=== PATIENT | female | born 1965 | race American Indian/Alaskan Native ===

== ENCOUNTER 2017-04-25 07:17 | Emergency (ER) | payer MEDICARE ==
[2017-04-25 07:34] VITALS: BP 166/88
--- NOTE | 2017-04-25 08:41 | Emergency Department Report ---
ED Recheck HPI - General Chief Complaint: Recheck/Abnormal Lab/Rx Stated Complaint: BILAT HIP PAIN Time Seen by Provider: 04/25/17 08:08 Source: patient Mode of arrival: Ambulatory Limitations: No Limitations - History of Present Illness Initial Comments: This is a 51-year-old female nontoxic, well nourished in appearance, no acute signs of distress presents to the ED complaining of morphine [address] refill[address] Patient stated Dr. Stone for a prescription with the wrong date and pharmacy will not fill it. Patient states she has a history of chronic pain from her surgery of her hip and knees. Denies any new trauma, chest pain, fever, chills , headache, nausea or vomiting. Patient states that allergies amoxicillin and oxycodone. Past medical history includes arthritis, CVA, and hypertension. MD Complaint: medication refill request -: Gradual Symptoms Since Prior Visit: no new symptoms Associated Symptoms: none. denies: fever, chills, chest pain, shortness of breath, rash, malaise, nasuea, abdominal pain - Related Data Home Medications Medication Instructions Recorded Confirmed Last Taken Diclofenac Dr [Ton Lewis] 75 mg PO BID 04/25/17 04/25/17 04/24/17 21:00 Losartan/Hydrochlorothiazide 1 each PO QDAY 04/25/17 04/25/17 04/24/17 09:00 [Losartan-Hctz 100-25 mg Tab] Morphine Sulfate [Morphine Sulfate 60 mg PO BID 04/25/17 04/25/17 04/23/17 09:00 ER] Previous Rx's Medication Instructions Recorded Last Taken Type Morphine ER [Ms Contin ER] 60 mg PO BID #2 tablet 04/25/17 Unknown Rx Allergies Allergy/AdvReac Type Severity Reaction Status Date / Time amoxicillin Allergy Swelling Verified 04/25/17 07:24 oxycodone HCl AdvReac Itching Verified 04/25/17 07:24 [From OxyContin] ED Review of Systems ROS: Stated complaint: BILAT HIP PAIN Other details as noted in HPI Constitutional: denies: chills, fever Eyes: denies: eye pain, eye discharge, vision change ENT: denies: ear pain, throat pain Respiratory: denies: cough, shortness of breath, wheezing Cardiovascular: denies: chest pain, palpitations Endocrine: no symptoms reported Gastrointestinal: denies: abdominal pain, nausea, diarrhea Genitourinary: denies: urgency, dysuria, discharge Musculoskeletal: denies: back pain, joint swelling, arthralgia Skin: denies: rash, lesions Neurological: denies: headache, weakness, paresthesias Psychiatric: denies: anxiety, depression Hematological/Lymphatic: denies: easy bleeding, easy bruising ED Past Medical Hx - Past Medical History Hx Hypertension: Yes Hx CVA: Yes (x 2) Hx Arthritis: Yes (???) Additional medical history: chronic pain - Surgical History Additional Surgical History: ortho pelvic surgery. . tubal ligation. right rotator cuff repair - Social History Smoking Status: Current Every Day Smoker Substance Use Type: Prescribed - Medications Home Medications: Home Medications Medication Instructions Recorded Confirmed Last Taken Type Diclofenac Dr [Ton Lewis] 75 mg PO BID 04/25/17 04/25/17 04/24/17 21:00 History Losartan/Hydrochlorothiazide 1 each PO QDAY 04/25/17 04/25/17 04/24/17 09:00 History [Losartan-Hctz 100-25 mg Tab] Morphine ER [Ms Contin ER] 60 mg PO BID #2 tablet 04/25/17 Unknown Rx Morphine Sulfate [Morphine Sulfate 60 mg PO BID 04/25/17 04/25/17 04/23/17 09: 00 History ER] ED Physical Exam - General Limitations: No Limitations General appearance: alert, in no apparent distress - Head Head exam: Present: atraumatic, normocephalic - Eye Eye exam: Present: normal appearance, PERRL, EOMI. Absent: scleral icterus, conjunctival injection, nystagmus, periorbital swelling, periorbital tenderness Pupils: Present: normal accommodation - ENT ENT exam: Present: normal exam, normal orophraynx, mucous membranes moist, TM's normal bilaterally, normal external ear exam - Neck Neck exam: Present: normal inspection, full ROM. Absent: tenderness, meningismus, lymphadenopathy, thyromegaly - Respiratory Respiratory exam: Present: normal lung sounds bilaterally. Absent: respiratory distress, wheezes, rales, rhonchi, stridor, chest wall tenderness, accessory muscle use, decreased breath sounds, prolonged expiratory - Cardiovascular Cardiovascular Exam: Present: regular rate, normal rhythm, normal heart sounds. Absent: bradycardia, tachycardia, irregular rhythm, systolic murmur, diastolic murmur, rubs, gallop - GI/Abdominal GI/Abdominal exam: Present: soft, normal bowel sounds. Absent: distended, tenderness, guarding, rebound, rigid, diminished bowel sounds - Rectal Rectal exam: Present: deferred - Extremities Exam Extremities exam: Present: normal inspection, full ROM, normal capillary refill. Absent: tenderness, pedal edema, joint swelling, calf tenderness - Back Exam Back exam: Present: normal inspection, full ROM. Absent: tenderness, CVA tenderness (R), CVA tenderness (L), muscle spasm, paraspinal tenderness, vertebral tenderness, rash noted - Neurological Exam Neurological exam: Present: alert, oriented X3, CN II-XII intact, normal gait, reflexes normal - Psychiatric Psychiatric exam: Present: normal affect, normal mood - Skin Skin exam: Present: warm, dry, intact, normal color. Absent: rash ED Course Vital Signs 04/25/17 07:32 Temperature 98.5 F Pulse Rate 81 Respiratory 17 Rate Blood Pressure 166/88 O2 Sat by Pulse 100 Oximetry - Reevaluation(s) Reevaluation #1: 04/25/17 08:42 Patient is speaking in full sentences with no signs of distress. - Consultations Consultation #1: 04/25/17 08:42 Erick Cabrera was consulted at regarding patients history and medication refill request. Dr. Stone stated it was a mistake in his part and requested for me to fill a day worth of Morphine 60 mg BID. ED Recheck MDM - Medical Decision Making 51-year-old presents with medication refill. Patient showed me the prescription that Dr. Stone wrote for her with the wrong date. Erick Cabrera was consulted at regarding patients history and medication refill request. Dr. Stone stated it was a mistake in his part and requested for me to fill a day worth of Morphine 60 mg BID. Patient was instructed not to operate any machinery while taking morphine due to sedation/drowsiness. At time time of discharge, the patient does not seem toxic or ill in appearance. No acute signs of distress noted. Patient agrees to discharge treatment plan of care. No further questions noted by the patient. Critical care attestation.: If time is entered above; I have spent that time in minutes in the direct care of this critically ill patient, excluding procedure time. ED Disposition Clinical Impression: Medication refill Disposition: DC-01 TO HOME OR SELFCARE Is pt being admited?: No Does the pt Need Aspirin: No Condition: Stable Instructions: Morphine, Slow Release (By mouth) Additional Instructions: Follow-up with Dr. Sosa in 24 hours or if symptoms worsen or continue without the emergency room as soon as possible. Due to the operate any machinery taking morphine due to sedation/drowsiness. Prescriptions: Morphine ER [Ms Contin ER] 60 mg PO BID #2 tablet Referrals: PRIMARY CAREMD [Primary Care Provider] - 3-5 Days [facility] [Outside] - 3-5 Days ERICK STONE SR, MD [Referring] - 24 Hours Forms: Work/School Release Form(ED)
== END 2017-04-25 08:56 | disposition home or self-care (01) ==
LOC: ED 07:17
DX: Z76.0 Encounter for issue of repeat prescription (principal); I10 Essential (primary) hypertension; G89.29 Other chronic pain; F17.200 Nicotine dependence, unspecified, uncomplicated; Z88.1 Allergy status to other antibiotic agents; Z88.8 Allergy status to other drugs, medicaments and biological substances; Z86.73 Personal history of transient ischemic attack (TIA), and cerebral infarction without residual deficits
CPT/HCPCS: 99282

== ENCOUNTER 2017-07-04 19:07 | Emergency (ER) | payer MEDICARE ==
[2017-07-04 19:20] VITALS: BP 173/100
[2017-07-04 19:36] LABS: Hematocrit 38.6 % (30.3-42.9); Hemoglobin 12.9 gm/dl (10.1-14.3); Mean Corpuscular HGB Conc 33 % (30-34); Mean Corpuscular Hemoglobin 32 pg (28-32); Mean Corpuscular Volume 95 fl (79-97); Platelet Count 247 K/mm3 (140-440); Red Blood Count 4.08 M/mm3 (3.65-5.03); Red Cell Distribution Width 13.7 % (13.2-15.2); White Blood Count 6.6 K/mm3 (4.5-11.0)
[2017-07-04 19:46] LABS: INR 0.89 (0.87-1.13); Partial Thromboplastin Time 27.8 Sec. (24.2-36.6)
[2017-07-04 19:58] LABS: Anion Gap 17 mmol/L; BUN/Creatinine Ratio 18; Blood Urea Nitrogen 14 mg/dL (7-17); Carbon Dioxide 26 mmol/L (22-30); Chloride 99.6 mmol/L (98-107); Glucose 105 mg/dL (65-100); Potassium 3.6 mmol/L (3.6-5.0); Sodium 139 mmol/L (137-145)
[2017-07-04 20:14] LABS: Basophils % (Manual) 0 % (0.0-1.8); Blastocytes % (Manual) 0 %
[2017-07-04 20:15] LABS: Diff Status Complete; Giant Platelets Few; Ovalocytes Few
--- NOTE | 2017-07-04 20:23 | Cat Scan Report ---
FINAL REPORT EXAM: CT HEAD/BRAIN WO CON HISTORY: neuro deficits \T\lt; 6hrs or sx present upon awakening TECHNIQUE: CT head without contrast PRIORS: None. FINDINGS: No acute intra-axial or extra-axial hemorrhage is identified. There is no evidence of midline shift or mass effect. The ventricles and sulci are within normal limits. Fregoso-white matter differentiation is intact. No acute parenchymal abnormalities seen. Bony calvarium is grossly intact. Visualized portions of the mastoids and paranasal sinuses are unremarkable. IMPRESSION: Negative CT head
== END 2017-07-04 23:55 | disposition left against medical advice (07) ==
LOC: ED 19:07
DX: R29.810 Facial weakness (principal); Z53.21 Procedure and treatment not carried out due to patient leaving prior to being seen by health care provider
CPT/HCPCS: 36415; 70450; 80048; 84484; 85007; 85025; 85610; 85670; 85730; 93005; 93010

== ENCOUNTER 2017-07-05 06:30 | Emergency (ER) | payer MEDICARE ==
[2017-07-05 07:05] LABS: Hematocrit 38.4 % (30.3-42.9); Hemoglobin 13.2 gm/dl (10.1-14.3); Mean Corpuscular HGB Conc 34 % (30-34); Mean Corpuscular Hemoglobin 33 pg (28-32); Mean Corpuscular Volume 95 fl (79-97); Platelet Count 244 K/mm3 (140-440); Red Blood Count 4.03 M/mm3 (3.65-5.03); Red Cell Distribution Width 13.7 % (13.2-15.2); White Blood Count 5.3 K/mm3 (4.5-11.0)
[2017-07-05 07:16] LABS: INR 0.87 (0.87-1.13)
[2017-07-05 07:17] LABS: Partial Thromboplastin Time 28.6 Sec. (24.2-36.6)
--- NOTE | 2017-07-05 07:17 | Emergency Department Report ---
HPI - General Chief Complaint: Neuro Symptoms/Deficit Time Seen by Provider: 07/05/17 07:04 - HPI HPI: This is a 51-year-old female who presents to the emergency department from home with a complaint of "my face is twisted." She also says that it feels like it is hard to completely close her eyes. Patient says that she first noticed it yesterday morning and did come to the hospital at that time but she says that she left because it was too busy at that time. She presents today with the same complaint. She denies any slurred speech, problems with movement of her extremities or ambulation or any other obvious neurological deficits. She has a history of hypertension. She also has a history of CVA 2 that did not leave her with any residual deficits. She has not taken anything for her symptoms prior to presentation. No recent travel or sick contacts at home. There is nothing that makes the facial asymmetry worse or better. Her PCP is a Dr. Erick Smallwood. She is a tobacco smoker and occasionally will smoke marijuana. ED Past Medical Hx - Past Medical History Previous Medical History?: Yes Hx Hypertension: Yes Hx CVA: Yes (x 2) Hx Arthritis: Yes (???) Additional medical history: chronic pain - Surgical History Past Surgical History?: Yes Additional Surgical History: ortho pelvic surgery. . tubal ligation. right rotator cuff repair - Social History Smoking Status: Current Every Day Smoker Substance Use Type: Marijuana - Medications Home Medications: Home Medications Medication Instructions Recorded Confirmed Last Taken Type Diclofenac [Ton Lewis] 75 mg PO BID 04/25/17 04/25/17 04/24/17 21:00 History Losartan/Hydrochlorothiazide 1 each PO QDAY 04/25/17 04/25/17 04/24/17 09:00 History [Losartan-Hctz 100-25 mg Tab] Morphine ER [Ms Contin ER] 60 mg PO BID #2 tablet 04/25/17 Unknown Rx Morphine Sulfate [Morphine Sulfate 60 mg PO BID 04/25/17 04/25/17 04/23/17 09: 00 History ER] Valacyclovir HCl [Valtrex] 1,000 mg PO TID #21 tablet 07/05/17 Unknown Rx predniSONE [Deltasone] 60 mg PO QDAY #21 tab 07/05/17 Unknown Rx ED Review of Systems ROS: Stated complaint: POSSIBLE MINI STROKE Other details as noted in HPI Comment: All other systems reviewed and negative Constitutional: denies: chills, fever Eyes: denies: eye pain, eye discharge, vision change ENT: denies: ear pain, throat pain Respiratory: denies: cough, shortness of breath, wheezing Cardiovascular: denies: chest pain, palpitations Gastrointestinal: denies: abdominal pain, nausea, diarrhea Genitourinary: denies: urgency, dysuria, discharge Musculoskeletal: denies: back pain, joint swelling, arthralgia Skin: denies: rash, lesions Neurological: other (facial asymmetry). denies: headache Physical Exam - Physical Exam Vital Signs: Vital Signs 07/05/17 07/05/17 06:38 06:40 Temperature 97.9 F 97.9 F Pulse Rate 61 66 Respiratory 18 18 Rate Blood Pressure 183/92 183/90 O2 Sat by Pulse 100 100 Oximetry Physical Exam: GENERAL: The patient is well-developed well-nourished. HENT: Normocephalic. Atraumatic. Patient has moist mucous membranes. She is able to raise her eyebrows but there is decreased movement with the left side when compared to the right. 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 EYES: Extraocular motions are intact. Pupils equal reactive to light bilaterally. No nystagmus. The patient has difficulty closing the left eyelid completely. NECK: Supple. Trachea is midline. CHEST/LUNGS: Clear to auscultation. There is no respiratory distress noted. HEART/CARDIOVASCULAR: Regular. There is no tachycardia. There is no gallop rub or murmur. ABDOMEN: Abdomen is soft, nontender. Patient has normal bowel sounds. There is no abdominal distention. SKIN: Skin is warm and dry. NEURO: The patient is awake, alert, and oriented. The patient is cooperative. The patient has no focal neurologic deficits. The patient has normal speech. Normal gait. No pronator drift. No dysmetria. There is subjective decreased sensation to the left arm when compared to the right. MUSCULOSKELETAL: There is no tenderness or deformity. There is no limitation range of motion. There is no evidence of acute injury. Muscle strength 5 out of 5 in upper and lower extremities bilaterally. 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 If positive for any type of acute infarction, the patient will be admitted to the hospital. If negative, she recommends discharge to home with a 7 day course of prednisone at 60 mg per day and Valtrex versus acyclovir. ED Medical Decision Making - Lab Data Result diagrams: 07/05/17 06:54 07/05/17 06:54 - EKG Data -: EKG Interpreted by Me EKG shows normal: sinus rhythm, axis, intervals, QRS complexes, ST-T waves Rate: normal - EKG Data When compared to previous EKG there are: previous EKG unavailable Interpretation: normal EKG - Radiology Data Radiology results: report reviewed CT scan of head without IV contrast: History: Facial droop. No slurred speech. Findings: Ventricles are normal in size and midline in location. 2 small focal areas of low attenuation in the left basal ganglia. measuring 4 mm in diameter is probably chronic lacunar infarct. Less likely acute/subacute ischemia cannot be entirely excluded. No extra-axial fluid collection. No evidence of hemorrhage. Normal brainstem and cerebellum. Normal sinuses and mastoid air cells. Impression: Areas of low attenuation left basal ganglia probably chronic lacunar infarct. Clinical correlation advised. If necessary MRI scan would be recommended. MRI of the brain resulted as a normal examination without any signs of ischemia or any other acute process. - Medical Decision Making This is a 51-year-old female presents to the emergency department after she noticed some left-sided facial paralysis and difficulty completely closing her left eye. Even if this was a CVA or TIA, the symptoms that started about 24 hours prior and therefore the patient would not have been a TPA candidate. A CT of the head was done that did not show any bleed, shift, mass, ischemia or any other acute process. On physical examination the patient does have left- sided nasolabial fold paresis and she has some difficulty completely closing her left eye with some decreased movement of the left side of the forehead. Doing an NIH stroke scale the patient she would be a 2 with the left-sided facial asymmetry and some subjective decreased sensation to the left arm when compared to the right. However the patient has no motor deficits. This presentation with her face appears more consistent with a Holt's palsy. However , to be on the safe side, I contacted the telemedicine neurologist who evaluated the patient via telephone monitor. The neurologist agreed with my assessment but did recommend that the patient have an MRI. If the MRI was to be negative that it appeared safe for the patient be discharged home with a 7 day course of steroids and Valtrex. The MRI was in fact negative for any signs of any acute process including ischemic changes. I spoke to the patient in great detail about Holt's palsy and she was sent home with prednisone and Valtrex given referrals for neurology. She understands the extreme importance to return to the emergency department if there is any other neurological deficits that show up or any other acute distress. Discharge instructions were given while in the emergency department and she understands, agrees to the plan , and all questions have been answered. - Differential Diagnosis Holt's palsy, CVA, TIA Critical Care Time: No Critical care attestation.: If time is entered above; I have spent that time in minutes in the direct care of this critically ill patient, excluding procedure time. ED Disposition Clinical Impression: Holt's palsy Disposition: DC-01 TO HOME OR SELFCARE Is pt being admited?: No Condition: Stable Instructions: Holt Palsy (ED) Additional Instructions: Please follow-up with your primary care physician in the next few days. I've also given you a referral for a local neurologist, Dr. tafoya, to follow up regarding your bells palsy. Return to the emergency Department with any worsening of her symptoms, slurred speech, weakness or any acute distress. Prescriptions: predniSONE [Deltasone] 60 mg PO QDAY #21 tab Valacyclovir HCl [Valtrex] 1,000 mg PO TID #21 tablet Referrals: PRIMARY CAREMD [Primary Care Provider] - 3-5 Days LEON TAFOYA MD [Staff Physician] - 3-5 Days Time of Disposition: 12:18
[2017-07-05] MEDS ORDERED: APRESOLINE IV ONE (07:19)
[2017-07-05 07:25] LABS: Anion Gap 18 mmol/L; BUN/Creatinine Ratio 18; Blood Urea Nitrogen 14 mg/dL (7-17); Calcium 9.9 mg/dL (8.4-10.2); Carbon Dioxide 27 mmol/L (22-30); Chloride 99.9 mmol/L (98-107); Glucose 108 mg/dL (65-100); Potassium 3.6 mmol/L (3.6-5.0); Sodium 141 mmol/L (137-145)
--- NOTE | 2017-07-05 08:18 | Cat Scan Report ---
CT scan of head without IV contrast: History: Facial droop. No slurred speech. Findings: Ventricles are normal in size and midline in location. 2 small focal areas of low attenuation in the left basal ganglia. measuring 4 mm in diameter is probably chronic lacunar infarct. Less likely acute/subacute ischemia cannot be entirely excluded. No extra-axial fluid collection. No evidence of hemorrhage. Normal brainstem and cerebellum. Normal sinuses and mastoid air cells. Impression: Areas of low attenuation left basal ganglia probably chronic lacunar infarct. Clinical correlation advised. If necessary MRI scan would be recommended.
[2017-07-05 08:38] LABS: Basophils % (Manual) 0 % (0.0-1.8); Blastocytes % (Manual) 0 %; Eosinophils % (Manual) 0 % (0.0-4.3)
[2017-07-05 08:39] LABS: Diff Status Complete; Giant Platelets Few; Ovalocytes Few
[2017-07-05 09:12] LABS: Bacteria,Urine 1+ /HPF (Negative); Bilirubin,Urine NEG (Negative); Blood,Urine SM (Negative); Ketones,Urine NEG (Negative); Leukocyte Esterase,Urine TR (Negative); Mucus,Urine 3+ /HPF; Nitrite,Urine POS (Negative); Protein,Urine <15 mg/dL mg/dL (Negative); Urobilinogen,Urine < 2.0 mg/dL (<2.0)
[2017-07-05 11:30] VITALS: BP 149/71
--- NOTE | 2017-07-05 12:01 | Magnetic Resonance Report ---
MRI scan of brain: Technique: Multiplanar multisequence images were obtained without contrast injection. Findings: No evidence of restricted diffusion. Ventricles are normal in size and midline in location. No evidence of acute ischemia, hemorrhage or mass. Suspect a small chronic lacunar infarct left basal ganglia. No extra axial fluid collection. Normal brainstem and cerebellum. Impression: No acute intracranial abnormality.
== END 2017-07-05 12:26 | disposition home or self-care (01) ==
LOC: ED 06:30
DX: G51.0 Bell's palsy (principal); I10 Essential (primary) hypertension; F17.200 Nicotine dependence, unspecified, uncomplicated; F12.10 Cannabis abuse, uncomplicated
CPT/HCPCS: 36415; 70450; 70551; 80048; 81001; 82962; 84484; 84703; 85007; 85025; 85610; 85670; 85730; 96374; 99284; J0360

== ENCOUNTER 2019-06-16 22:49 | Emergency (ER) | payer MEDICARE ==
[2019-06-16] MEDS ORDERED: SODIUM CHLORIDE 0.9% 1000 ML 1,000 ML IV ONE (23:16)
[2019-06-16] MEDS ORDERED: PANTOPRAZOLE 40 MG INJ IV ONE (23:16)
--- NOTE | 2019-06-16 23:22 | Emergency Department Report ---
ED Abdominal Pain HPI - General Chief Complaint: Nausea/Vomiting/Diarrhea Stated Complaint: NAUSEA/VOMITING Time Seen by Provider: 06/16/19 23:11 Source: EMS Mode of arrival: Stretcher Limitations: No Limitations - History of Present Illness Initial Comments: Patient is 53 years old female with history of hypertension. Patient presented to the ER via EMS complaining of diffuse abdominal pain, crampy in nature with no radiation. Pain associated with nausea, vomiting and diarrhea. Patient describes her diarrhea as black diarrhea. Patient denied any fever or chills. Patient stated that she is taking ibuprofen 3 times a day prescriber her primary care physician and moreover she also take a [id number] ibuprofen. Patient denied any hematemesis, gross hematochezia, hematuria or hemoptysis. MD Complaint: abdominal pain -: days(s) (3) Location: diffuse Radiation: none Migration to: no migration Severity scale (0 -10): 0 Quality: cramping Consistency: intermittent - Related Data Home Medications Medication Instructions Recorded Confirmed Last Taken Diclofenac Dr [Ton Lewis] 75 mg PO BID 04/25/17 04/25/17 04/24/17 21:00 Losartan/Hydrochlorothiazide 1 each PO QDAY 04/25/17 04/25/17 04/24/17 09:00 [Losartan-Hctz 100-25 mg Tab] Morphine Sulfate [Morphine Sulfate 60 mg PO BID 04/25/17 04/25/17 04/23/17 09:00 ER] Previous Rx's Medication Instructions Recorded Last Taken Type Morphine ER [Ms Contin ER] 60 mg PO BID #2 tablet 04/25/17 Unknown Rx Valacyclovir HCl [Valtrex] 1,000 mg PO TID #21 tablet 07/05/17 Unknown Rx predniSONE [Deltasone] 60 mg PO QDAY #21 tab 07/05/17 Unknown Rx Allergies Allergy/AdvReac Type Severity Reaction Status Date / Time amoxicillin Allergy Swelling Verified 04/25/17 07:24 oxycodone HCl AdvReac Itching Verified 04/25/17 07:24 [From OxyContin] ED Review of Systems ROS: Stated complaint: NAUSEA/VOMITING Other details as noted in HPI Comment: All other systems reviewed and negative Constitutional: denies: chills, fever Respiratory: denies: cough, shortness of breath, SOB with exertion Cardiovascular: denies: chest pain, palpitations Gastrointestinal: abdominal pain, nausea, vomiting, diarrhea. 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 . tubal ligation. right rotator cuff repair - Social History Smoking Status: Unknown if ever smoked Substance Use Type: Prescribed - Medications Home Medications: Home Medications Medication Instructions Recorded Confirmed Last Taken Type Diclofenac Dr [Ton Lewis] 75 mg PO BID 04/25/17 04/25/17 04/24/17 21:00 History Losartan/Hydrochlorothiazide 1 each PO QDAY 04/25/17 04/25/17 04/24/17 09:00 History [Losartan-Hctz 100-25 mg Tab] Morphine ER [Ms Contin ER] 60 mg PO BID #2 tablet 04/25/17 Unknown Rx Morphine Sulfate [Morphine Sulfate 60 mg PO BID 04/25/17 04/25/17 04/23/17 09:00 History ER] Valacyclovir HCl [Valtrex] 1,000 mg PO TID #21 tablet 07/05/17 Unknown Rx predniSONE [Deltasone] 60 mg PO QDAY #21 tab 07/05/17 Unknown Rx ED Physical Exam - General Limitations: No Limitations General appearance: alert, in no apparent distress - Head Head exam: Present: atraumatic, normocephalic, normal inspection - Eye Eye exam: Present: normal appearance - ENT ENT exam: Present: normal exam, normal orophraynx, mucous membranes moist - Neck Neck exam: Present: normal inspection, full ROM. Absent: tenderness, meningismus, lymphadenopathy, thyromegaly - Respiratory Respiratory exam: Present: normal lung sounds bilaterally - Cardiovascular Cardiovascular Exam: Present: regular rate, normal rhythm, normal heart sounds - GI/Abdominal GI/Abdominal exam: Present: soft, normal bowel sounds. Absent: distended, tenderness, guarding, rebound, rigid, organomegaly, mass, bruit, pulsatile mass, hernia - Extremities Exam Extremities exam: Present: normal inspection, full ROM, normal capillary refill. Absent: tenderness, pedal edema, joint swelling, calf tenderness - Back Exam Back exam: Present: normal inspection, full ROM. Absent: CVA tenderness (R), CVA tenderness (L), muscle spasm, paraspinal tenderness, vertebral tenderness - Neurological Exam Neurological exam: Present: alert, oriented X3, CN II-XII intact, normal gait, reflexes normal - Psychiatric Psychiatric exam: Present: normal mood - Skin Skin exam: Present: warm, intact, normal color ED Course Vital Signs 06/16/19 06/16/19 06/16/19 22:57 23:06 23:16 Temperature 98.3 F Pulse Rate 62 58 L Respiratory 17 Rate Blood Pressure 147/69 147/69 O2 Sat by Pulse 98 98 97 Oximetry 06/16/19 06/16/19 06/17/19 23:30 23:46 00:02 Temperature Pulse Rate 56 L 55 L 59 L Respiratory 13 17 15 Rate Blood Pressure 149/72 149/72 164/86 O2 Sat by Pulse 95 97 99 Oximetry 06/17/19 06/17/19 06/17/19 00:16 00:34 00:46 Temperature Pulse Rate 57 L 94 H 60 Respiratory 21 19 15 Rate Blood Pressure 164/86 164/86 164/86 O2 Sat by Pulse 97 100 100 Oximetry 06/17/19 06/17/19 06/17/19 01:00 01:16 01:30 Temperature Pulse Rate 58 L 62 60 Respiratory 13 19 18 Rate Blood Pressure 177/92 149/72 165/81 O2 Sat by Pulse 99 97 95 Oximetry 06/17/19 06/17/19 06/17/19 01:46 02:00 02:16 Temperature Pulse Rate 64 62 60 Respiratory 21 16 16 Rate Blood Pressure 165/81 149/85 149/85 O2 Sat by Pulse 96 97 98 Oximetry 06/17/19 06/17/19 06/17/19 02:30 02:46 03:00 Temperature Pulse Rate 64 61 63 Respiratory 20 14 19 Rate Blood Pressure 149/84 149/84 173/86 O2 Sat by Pulse 95 98 98 Oximetry 06/17/19 06/17/19 03:16 03:30 Temperature Pulse Rate 64 62 Respiratory 22 17 Rate Blood Pressure 173/86 139/83 O2 Sat by Pulse 98 98 Oximetry ED Medical Decision Making - Lab Data Result diagrams: 06/16/19 23:23 06/17/19 03:07 - Radiology Data Radiology results: report reviewed - Medical Decision Making Patient is 53 years old female with history of hypertension. Patient presented to the ER via EMS complaining of diffuse abdominal pain, crampy in nature with no radiation. Pain associated with nausea, vomiting and diarrhea. Patient describes her diarrhea as black diarrhea. Patient denied any fever or chills. Patient stated that she is taking ibuprofen 3 times a day prescriber her primary care physician and moreover she also take a [id number] ibuprofen. Patient denied any hematemesis, gross hematochezia, hematuria or hemoptysis. Patient to found hypokalemic, K replaced with normal level now. Ct abdomen and pelvis showed enteritis. Patient stated that she feel much better now.no vomiting. Patient advised to follow up with her PCP in 2-3 days and to return to er if symptoms not improved. Critical care attestation.: If time is entered above; I have spent that time in minutes in the direct care of this critically ill patient, excluding procedure time. ED Disposition Clinical Impression: Abdominal pain, Gastroenteritis, Hypokalemia Disposition: - TO HOME OR SELFCARE Is pt being admited?: No Condition: Stable Instructions: Acute Abdominal Pain (ED), Gastroenteritis (ED) Referrals: ZOILA JACKSON MD [Primary Care Provider] - 3-5 Days
[2019-06-16 23:53] LABS: Basophils % (Auto) 0.7 % (0.0-1.8); Eosinophils % (Auto) 0.5 % (0.0-4.3); Hematocrit 39.9 % (30.3-42.9); Hemoglobin 13.7 gm/dl (10.1-14.3); Lymphocytes # (Auto) 1.5 K/mm3 (1.2-5.4); Lymphocytes % (Auto) 23.2 % (13.4-35.0); Mean Corpuscular HGB Conc 34 % (30-34); Mean Corpuscular Volume 92 fl (79-97); Monocytes # (Auto) 0.3 K/mm3 (0.0-0.8); Monocytes % (Auto) 4.6 % (0.0-7.3); Platelet Count 230 K/mm3 (140-440); Red Blood Count 4.33 M/mm3 (3.65-5.03)
[2019-06-17 00:03] LABS: INR 1.01 (0.87-1.13)
[2019-06-17 00:14] LABS: Alanine Aminotransferase 40 units/L (7-56); Albumin 4.7 g/dL (3.9-5); BUN/Creatinine Ratio 73; Blood Urea Nitrogen 22 mg/dL (7-17); Calcium 10.1 mg/dL (8.4-10.2); Hemolysis Index 6
[2019-06-17 00:31] LABS: Bacteria,Urine 4+ /HPF (Negative); Bilirubin,Urine NEG (Negative); Blood,Urine MOD (Negative); Color,Urine Amber (Yellow); Mucus,Urine 3+ /HPF
[2019-06-17] MEDS ORDERED: POTASSIUM CHLORIDE ER 20 MEQ TAB PO ONE ×2 (00:31→00:41)
[2019-06-17] MEDS ORDERED: POTASSIUM CHLORIDE 10 MEQ 10 MEQ/100 ML BAG IV ONE (00:41)
[2019-06-17] MEDS: POTASSIUM CHLORIDE 10 MEQ 10 MEQ/100 ML BAG IV SCH ×2 (00:46→02:02)
[2019-06-17] MEDS ORDERED: MORPHINE 4 MG/1 ML INJ ONE (00:55)
[2019-06-17] MEDS ORDERED: ONDANSETRON 4 MG/2 ML INJ ONE (00:55)
[2019-06-17] MEDS ORDERED: ONDANSETRON 4 MG/2 ML INJ IV ONE (01:00)
[2019-06-17] MEDS ORDERED: MORPHINE 4 MG/1 ML INJ IV ONE (01:00)
--- NOTE | 2019-06-17 01:25 | Cat Scan Report ---
CT ABDOMEN AND PELVIS WITH CONTRAST INDICATION: abdominal pain, nausea, vomiting, diarrhea CONTRAST: 100 cc Omnipaque 300 IV COMPARISON: None available. All CT scans at this location are performed using CT dose reduction for ALARA by means of automated e xposure control. NOTE: Resolution is decreased and artifact is introduced by the patient's size. FINDINGS: Lung bases are clear. Sacroiliac fusion changes are noted. No pneumoperitoneum is seen. No significant abdominal wall herniation is noted. Gallbladder is prominently contracted but shows no de finite calculi. No biliary dilatation is seen. Pancreas appears within normal limits. No urinary obst ructive changes are seen. No abdominal masses are noted. No lymphadenopathy is noted. Appendix appear s within normal limits. I do not see convincing evidence of bowel obstruction. No significant bowel dilatation is noted. Farrell mariano, many small bowel loops show mild distention with fluid as can be seen with enteritis. No definit e bowel wall thickening or enhancement are seen. Terminal ileum appears within normal limits. IMPRESSION: Bowel findings suggest mild enteritis Signer Name: Rusty Cheatham MD Signed: 06/17/2019 1:21 AM Workstation Name: [id number]
[2019-06-17 01:26] LABS: Bilirubin,Direct < 0.2 mg/dL (0-0.2)
[2019-06-17] MEDS ORDERED: SODIUM CHLORIDE 0.9% 500 ML 500 ML IV ONE (02:10)
[2019-06-17] MEDS ORDERED: SODIUM CHLORIDE 0.9% 500 ML 500 ML ONE (02:10)
[2019-06-17 04:37] VITALS: BP 155/80
== END 2019-06-17 04:37 | disposition home or self-care (01) ==
LOC: ED 22:49
DX: K52.9 Noninfective gastroenteritis and colitis, unspecified (principal); E87.6 Hypokalemia; I10 Essential (primary) hypertension; Z86.73 Personal history of transient ischemic attack (TIA), and cerebral infarction without residual deficits; Z98.51 Tubal ligation status; Z79.899 Other long term (current) drug therapy; Z88.1 Allergy status to other antibiotic agents; Z88.5 Allergy status to narcotic agent
CPT/HCPCS: 36415; 74177; 80048; 80076; 81001; 83690; 84132; 85025; 85610; 96361; 96365; 96375; 99284; C9113; J2270; J2405; J3480; J7030; J7040; Q9967

== ENCOUNTER 2019-06-29 06:50 | Emergency (ER) | payer MEDICARE ==
[2019-06-29 07:59] LABS: Bilirubin,Urine NEG (Negative); Blood,Urine SM (Negative); Color,Urine Straw (Yellow); Hyaline Casts,Urine 1 /LPF; Mucus,Urine FEW /HPF; Protein,Urine <15 mg/dL mg/dL (Negative); Urobilinogen,Urine < 2.0 mg/dL (<2.0)
--- NOTE | 2019-06-29 08:33 | Emergency Department Report ---
ED Female HPI - General Chief complaint: Abdominal Pain Stated complaint: DISCOMFORT IN UTERUS Time Seen by Provider: 06/29/19 08:27 Source: patient Mode of arrival: Ambulatory Limitations: No Limitations - History of Present Illness Initial comments: Patient is a 53-year-old female that presents emergency room with pelvic pain and lower abdominal pain. Patient states the pain started 3 days ago. Patient states the pain is worsening. Patient states the pain is worse with movement better with rest. Patient states the pain is a 10 out of 10. Patient states it is nonradiating. MD Complaint: pelvic pain, other (lower abdominal pain) -: Sudden Radiation: non-radiating Severity: severe Severity scale (0 -10): 10 Consistency: constant Improves with: other Worsens with: movement Are you Now?: No Associated Symptoms: abdominal pain. denies: vaginal discharge, vaginal bleeding, nausea/vomiting, fever/chills, headaches, loss of appetite, dysuria, hematuria, rash, seizure, shortness of breath, syncope, weakness - Related Data Sexually active: No : 4 Para: 4 A: 0 Home Medications Medication Instructions Recorded Confirmed Last Taken Diclofenac Dr [Ton Lewis] 75 mg PO BID 04/25/17 04/25/17 04/24/17 21:00 Losartan/Hydrochlorothiazide 1 each PO QDAY 04/25/17 04/25/17 04/24/17 09:00 [Losartan-Hctz 100-25 mg Tab] Morphine Sulfate [Morphine Sulfate 60 mg PO BID 04/25/17 04/25/17 04/23/17 09:00 ER] Previous Rx's Medication Instructions Recorded Last Taken Type Morphine ER [Ms Contin ER] 60 mg PO BID #2 tablet 04/25/17 Unknown Rx Valacyclovir HCl [Valtrex] 1,000 mg PO TID #21 tablet 07/05/17 Unknown Rx predniSONE [Deltasone] 60 mg PO QDAY #21 tab 07/05/17 Unknown Rx Ciprofloxacin HCl [Ciprofloxacin 500 mg PO Q12HR #14 tab 06/17/19 Unknown Rx TAB] Ondansetron [Zofran Odt] 4 mg PO Q8HR PRN #14 tab.rapdis 06/17/19 Unknown Rx Ibuprofen [Motrin 800 MG tab] 800 mg PO Q8HR PRN #30 tablet 06/29/19 Unknown Rx traMADol [Ultram 50 MG tab] 50 mg PO Q4HR PRN #14 tablet 06/29/19 Unknown Rx Allergies Allergy/AdvReac Type Severity Reaction Status Date / Time amoxicillin Allergy Swelling Verified 04/25/17 07:24 oxycodone HCl AdvReac Itching Verified 04/25/17 07:24 [From OxyContin] ED Review of Systems ROS: Stated complaint: DISCOMFORT IN UTERUS Other details as noted in HPI Constitutional: denies: chills, fever Eyes: denies: eye pain, eye discharge, vision change ENT: denies: ear pain, throat pain Respiratory: denies: cough, shortness of breath, wheezing Cardiovascular: denies: chest pain, palpitations Endocrine: no symptoms reported Gastrointestinal: abdominal pain. 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 . tubal ligation. right rotator cuff repair - Family History Family history: no significant - Social History Smoking Status: Current Every Day Smoker Substance Use Type: None - Medications Home Medications: Home Medications Medication Instructions Recorded Confirmed Last Taken Type Otilia Lewis [Ton Lewis] 75 mg PO BID 04/25/17 04/25/17 04/24/17 21:00 History Losartan/Hydrochlorothiazide 1 each PO QDAY 04/25/17 04/25/17 04/24/17 09:00 History [Losartan-Hctz 100-25 mg Tab] Morphine ER [Ms Contin ER] 60 mg PO BID #2 tablet 04/25/17 Unknown Rx Morphine Sulfate [Morphine Sulfate 60 mg PO BID 04/25/17 04/25/17 04/23/17 09:00 History ER] Valacyclovir HCl [Valtrex] 1,000 mg PO TID #21 tablet 07/05/17 Unknown Rx predniSONE [Deltasone] 60 mg PO QDAY #21 tab 07/05/17 Unknown Rx Ciprofloxacin HCl [Ciprofloxacin 500 mg PO Q12HR #14 tab 06/17/19 Unknown Rx TAB] Ondansetron [Zofran Odt] 4 mg PO Q8HR PRN #14 tab.rapdis 06/17/19 Unknown Rx Ibuprofen [Motrin 800 MG tab] 800 mg PO Q8HR PRN #30 tablet 06/29/19 Unknown Rx traMADol [Ultram 50 MG tab] 50 mg PO Q4HR PRN #14 tablet 06/29/19 Unknown Rx ED Physical Exam - General Limitations: No Limitations General appearance: alert, in no apparent distress - Head Head exam: Present: atraumatic, normocephalic - Eye Eye exam: Present: normal appearance - ENT ENT exam: Present: mucous membranes moist - Neck Neck exam: Present: normal inspection - Respiratory Respiratory exam: Present: normal lung sounds bilaterally. Absent: respiratory distress - Cardiovascular Cardiovascular Exam: Present: regular rate, normal rhythm. Absent: systolic murmur, diastolic murmur, rubs, gallop - GI/Abdominal GI/Abdominal exam: Present: soft, tenderness (lower abd ttp), normal bowel sounds - Rectal Rectal exam: Present: deferred - Extremities Exam Extremities exam: Present: normal inspection - Back Exam Back exam: Present: normal inspection, full ROM - Neurological Exam Neurological exam: Present: alert, oriented X3 - Psychiatric Psychiatric exam: Present: normal affect, normal mood - Skin Skin exam: Present: warm, dry, intact, normal color. Absent: rash ED Course Vital Signs 06/29/19 06/29/19 07:04 12:17 Temperature 97.7 F Pulse Rate 73 88 Respiratory 14 18 Rate Blood Pressure 174/96 Blood Pressure 181/91 [Right] O2 Sat by Pulse 99 99 Oximetry - Reevaluation(s) Reevaluation #1: I discussed all results with patient. I discussed plan of care with patient. Patient agrees with plan of care. Patient is stable for discharge. Patient will be discharged home. Patient given discharge instructions. Patient voiced understanding of discharge instructions. 06/29/19 12:00 ED Medical Decision Making - Lab Data Result diagrams: 06/29/19 08:54 06/29/19 08:54 - Radiology Data Radiology results: report reviewed CT ABDOMEN AND PELVIS WITH CONTRAST HISTORY: Lower abdominal pain for 3 days COMPARISON: 06/17/2019 TECHNIQUE: Axial CT images were obtained through the abdomen and pelvis after 100 cc of Omnipaque 300 intravenously. Sagittal and coronal reformatted images. All CT scans at this location are performed using CT dose reduction for ALARA by means of automated exposure control. FINDINGS: CT ABDOMEN: Lung Bases: Clear. Liver: No significant abnormality. Biliary: No significant abnormality. Spleen: No significant abnormality. Unenlarged. Pancreas: No significant abnormality. Adrenals: No significant abnormality. Kidneys: No significant abnormality. Lymphatics: No lymphadenopathy. Vasculature: No significant abnormality. Bowel/Peritoneum: No significant abnormality. No free air. Normal appendix. Findings suggestive of enteritis have resolved since the previous exam. CT PELVIS: : No significant abnormality. Small free pelvic fluid has developed. No abscess. Osseous Structures: Previous fusion of both SI joints is noted. Mild lumbar spondylosis. No acute bony findings. Additional Findings: None IMPRESSION: Small pelvic ascites. Otherwise, unremarkable CT abdomen and pelvis. No acute inflammatory process is identified. - Medical Decision Making pt is a 53-year-old female that presents emergency room with complaints of abdominal pain and pelvic pain. Patient's labs are unremarkable. Patient's CT is unremarkable. Patient is stable for discharge. Patient will be discharged home. Patient will be given pain medication for the pain. - Differential Diagnosis abdominal pain. Pelvic pain. Critical care attestation.: If time is entered above; I have spent that time in minutes in the direct care of this critically ill patient, excluding procedure time. ED Disposition Clinical Impression: Pelvic pain Abdominal pain Qualifiers: Abdominal location: lower abdomen, unspecified Qualified Code(s): R10.30 - Lower abdominal pain, unspecified Disposition: - TO HOME OR SELFCARE Is pt being admited?: No Does the pt Need Aspirin: No Condition: Stable Instructions: Abdominal Pain (ED) Additional Instructions: Patient to follow-up with primary care in 2-3 days. Patient to follow-up with metal trim erector in 2-3 days. Patient to return to ER if condition worsens. Patient to rest. Patient to increase water. Patient to take meds as directed. Patient's take Tylenol or ibuprofen when necessary for pain. Prescriptions: Ibuprofen [Motrin 800 MG tab] 800 mg PO Q8HR PRN #30 tablet PRN Reason: pain traMADol [Ultram 50 MG tab] 50 mg PO Q4HR PRN #14 tablet PRN Reason: Pain Referrals: PRIMARY CARE, [Primary Care Provider] - 3-5 Days Time of Disposition: 12:02
[2019-06-29 09:13] LABS: Basophils # (Auto) 0.1 K/mm3 (0.0-0.1); Basophils % (Auto) 0.8 % (0.0-1.8); Eosinophils % (Auto) 0.3 % (0.0-4.3); Hematocrit 36.7 % (30.3-42.9); Hemoglobin 12.5 gm/dl (10.1-14.3); Lymphocytes # (Auto) 2.1 K/mm3 (1.2-5.4); Lymphocytes % (Auto) 24.4 % (13.4-35.0); Mean Corpuscular HGB Conc 34 % (30-34); Mean Corpuscular Volume 93 fl (79-97); Monocytes # (Auto) 0.6 K/mm3 (0.0-0.8); Monocytes % (Auto) 7.2 % (0.0-7.3); Platelet Count 366 K/mm3 (140-440); Red Blood Count 3.94 M/mm3 (3.65-5.03); Red Cell Distribution Width 13.7 % (13.2-15.2)
[2019-06-29 10:08] LABS: Alanine Aminotransferase 16 units/L (7-56); BUN/Creatinine Ratio 10; Blood Urea Nitrogen 7 mg/dL (7-17); Calcium 10.3 mg/dL (8.4-10.2); Hemolysis Index 4
[2019-06-29 10:10] LABS: Bilirubin,Direct < 0.2 mg/dL (0-0.2)
--- NOTE | 2019-06-29 11:23 | Cat Scan Report ---
CT ABDOMEN AND PELVIS WITH CONTRAST HISTORY: Lower abdominal pain for 3 days COMPARISON: 06/17/2019 TECHNIQUE: Axial CT images were obtained through the abdomen and pelvis after 100 cc of Omnipaque 300 intravenously. Sagittal and coronal reformatted images. All CT scans at this location are performed using CT dose reduction for ALARA by means of automated exposure control. FINDINGS: CT ABDOMEN: Lung Bases: Clear. Liver: No significant abnormality. Biliary: No significant abnormality. Spleen: No significant abnormality. Unenlarged. Pancreas: No significant abnormality. Adrenals: No significant abnormality. Kidneys: No significant abnormality. Lymphatics: No lymphadenopathy. Vasculature: No significant abnormality. Bowel/Peritoneum: No significant abnormality. No free air. Normal appendix. Findings suggestive of en teritis have resolved since the previous exam. CT PELVIS: : No significant abnormality. Small free pelvic fluid has developed. No abscess. Osseous Structures: Previous fusion of both SI joints is noted. Mild lumbar spondylosis. No acute bon y findings. Additional Findings: None IMPRESSION: Small pelvic ascites. Otherwise, unremarkable CT abdomen and pelvis. No acute inflammatory process is identified. Signer Name: Omer Smith Jr, MD Signed: 06/29/2019 11:19 AM Workstation Name: [id number]
[2019-06-29 12:29] VITALS: BP 181/91
== END 2019-06-29 12:17 | disposition home or self-care (01) ==
LOC: ED 06:50
DX: R10.2 Pelvic and perineal pain (principal); R10.30 Lower abdominal pain, unspecified; I10 Essential (primary) hypertension; F17.200 Nicotine dependence, unspecified, uncomplicated; Z86.73 Personal history of transient ischemic attack (TIA), and cerebral infarction without residual deficits; Z98.51 Tubal ligation status; Z88.1 Allergy status to other antibiotic agents; Z88.5 Allergy status to narcotic agent; Z79.899 Other long term (current) drug therapy
CPT/HCPCS: 36415; 74177; 80048; 80076; 81001; 85025; 99284; Q9967